=== PATIENT | female | born 1960 | race Two or more races ===

== ENCOUNTER 2023-12-17 13:30 | Outpatient (CLI) | payer OTHER ==
[~2023-12-17 13:30] MED LIST: KETO10TA2 PO; SYNTHROID175 MCG
== END 2023-12-17 13:39 | disposition home or self-care (01) ==
LOC: RAD 13:30
PROVIDERS: ATTEND Orthopaedic Surgery
DX: M25.562 Pain in left knee (principal); M25.561 Pain in right knee